=== PATIENT | male | born 1980 | race Two or more races ===

== ENCOUNTER 2016-07-07 07:42 | Emergency (ER) | payer MEDICARE ==
[~2016-07-07] VITALS: Ht 177.8 cm; Wt 95.3 kg
[~2016-07-07 07:42] MED LIST: PEPCID40 MG PO
[2016-07-07] MEDS ORDERED: ABILIFY2 MG ORAL (07:53)
[2016-07-07] MEDS ORDERED: Surgicel 4in x 8in TOPIC ONE (08:01)
[2016-07-07 08:09] VITALS: BP 129/91
--- NOTE | 2016-07-07 08:11 | Emergency Room Report ---
History of Present Illness General Chief Complaint: Laceration Source: Patient Present Illness HPI Patient just with complaints of laceration to his right thumb patient is right- hand dominant this occurred approximately 2:00 in the morning Patient reports that he was changing a tire on his car when the laceration occurred Patient reports last tetanus shot was less than 5 years ago Denies any other hand pain or elbow pain denies any other trauma Pain localized to the area is 4/10 worse with touch Allergies: Coded Allergies: No Known Allergies (Unverified , 04/21/13) Patient History Past Medical History: see triage record Pertinent Family History: none Reviewed Nursing Documentation: PMH: Agreed, PSxH: Agreed Nursing Documentation-PMH Past Medical History: No Stated History Review of Systems All Other Systems: negative except mentioned in HPI Physical Exam Vital Signs Date Time Temp Pulse Resp B/P Pulse Ox O2 Delivery O2 Flow Rate FiO2 07/07/16 07:47 98.2 98 16 129/91 99 Room Air Sp02 EP Interpretation: reviewed, normal General Appearance: well appearing, no apparent distress Head: normocephalic, atraumatic Eyes: bilateral eye EOMI, bilateral eye PERRL ENT: normal pharynx Neck: supple Respiratory: lungs clear Cardiovascular #1: regular rate, rhythm Gastrointestinal: non tender, soft Musculoskeletal: other - Patient will to fully flex the thumb, full range of motion intact Neurologic: motor strength/tone normal, sensory intact Skin: other - Distal tip palmar aspect right thumb, there is what appears to be a full skin avulsion/distal tip amputation Lymphatic: no adenopathy Medical Decision Making Diagnostic Impression: Primary Impression: Skin avulsion Additional Impression: Amputation finger ER Course Given the exam and evaluation there is no area for other suturing there appears to be a full avulsion/distal tip amputation The area was cleansed and irrigated Surgeon seal applied to the area Pressure Curlex applied on top with good coverage and pressure Patient remained neurovascularly intact after Patient is provided pain medication requires close outpatient followup Last Vital Signs Date Time Temp Pulse Resp B/P Pulse Ox O2 Delivery O2 Flow Rate FiO2 07/07/16 07:47 98.2 98 16 129/91 99 Room Air Status: improved Disposition: HOME, SELF-CARE Condition: Improved Referrals: NOT CHOSEN IPA/MD,REFERRING (PCP) Additional Instructions: Patient is provided with the discharge instructions notified to follow up with primary doctor in the next 2-3 days otherwise return to the er with any worsening symptoms. Please note that this report is being documented using DRAGON technology. This can lead to erroneous entry secondary to incorrect interpretation by the dictating instrument. CHANELL RODRIGUEZ D.O. Jul 07, 2016 08:10
[2016-07-07] MEDS ORDERED: ACETAMINOPHEN-1 EAC1 ORAL (08:12)
[2016-07-07] MEDS ORDERED: IBUPROFEN600 MG ORAL (08:12)
[2016-07-07 08:16] VITALS: BP 129/91
== END 2016-07-07 08:30 | disposition home or self-care (01) ==
LOC: EMR 08:00
DX: S68.021A Partial traumatic metacarpophalangeal amputation of right thumb, initial encounter (principal); S61.001A Unspecified open wound of right thumb without damage to nail, initial encounter; X58.XXXA Exposure to other specified factors, initial encounter; Y92.9 Unspecified place or not applicable; Y99.8 Other external cause status
CPT/HCPCS: 99282

== ENCOUNTER 2017-11-30 13:39 | Emergency (ER) | payer MEDICARE ==
[~2017-11-30] VITALS: Ht 175.3 cm; Wt 81.6 kg
[~2017-11-30 13:39] MED LIST changes: +ABILIFY2 MG ORAL; +ACETAMINOPHEN-1 EAC1 ORAL; +IBUPROFEN600 MG ORAL
[2017-11-30 13:52] VITALS: BP 152/93
--- NOTE | 2017-11-30 13:55 | Emergency Room Report ---
History of Present Illness General Chief Complaint: Male Urogenital Problems Source: Patient Present Illness HPI patient is a 37-year-old male with no significant past medical history complaining of one day of a cyst on his penile shaft after shaving. Pain, pus drainage, scrotal swelling, penile discharge, dysuria, fevers/chills. Denies recent sexual encounter has not taken any medication for the cyst. All other review of systems Allergies: Coded Allergies: No Known Allergies (Unverified , 04/21/13) Patient History Past Medical History: see triage record Past Surgical History: none Immunizations: UTD Reviewed Nursing Documentation: PMH: Agreed; PSxH: Agreed Nursing Documentation-PMH Past Medical History: No History, Except For History Of Psychiatric Problem: Yes - Schizophrenia Review of Systems All Other Systems: negative except mentioned in HPI Physical Exam Vital Signs Date Time Temp Pulse Resp B/P (MAP) Pulse Ox O2 Delivery O2 Flow Rate FiO2 11/30/17 13:44 97.9 80 16 152/93 94 Room Air 97.9 Sp02 EP Interpretation: reviewed, normal General Appearance: normal inspection, well appearing, no apparent distress Head: normocephalic Eyes: bilateral eye normal inspection, bilateral eye PERRL ENT: normal ENT inspection, hearing grossly normal Neck: normal inspection, full range of motion, supple Respiratory: normal inspection, lungs clear, no rhonchi, no wheezing Cardiovascular #1: normal inspection, no edema, no murmur Gastrointestinal: normal inspection, soft Rectal: deferred Genitourinary: no CVA tenderness, other - small nonerythematous nonpustular cysts on posterior penile shaft Musculoskeletal: normal inspection, back normal Neurologic: normal inspection, alert Psychiatric: normal inspection, judgement/insight normal Skin: warm/dry, other - Small non-pustular nonerythematous cysts on posterior penile shaft Lymphatic: normal inspection, no adenopathy Medical Decision Making PA Attestation All diagnoses and treatment plans were reviewed and discussed with my supervising physician Dr. Richmond Diagnostic Impression: Primary Impression: Abnormal urogenital findings Additional Impression: Penile cyst ER Course patient is a 37-year-old male with no significant past medical history complaining of one day of a cyst on his penile shaft after shaving. Pain, pus drainage, scrotal swelling, penile discharge, dysuria, fevers/chills. Denies recent sexual encounter has not taken any medication for the cyst. All other review of systems Ddx considered but are not limited to penile cyst, penile abscess,balanitis Vital signs: are WNL, pt. is afebrile H&PE are most consistent with penile cyst ORDERS: Keflex, Bactroban ED INTERVENTIONS: None required at this time. DISCHARGE: At this time pt. is stable for d/c to home. Will provide printed patient care instructions, and any necessary prescriptions. Care plan and follow up instructions have been discussed with the patient prior to discharge.if fevers/chills return to the emergency room, keep the area dry, wear cotton underwear, social intercourse with condoms Last Vital Signs Date Time Temp Pulse Resp B/P (MAP) Pulse Ox O2 Delivery O2 Flow Rate FiO2 11/30/17 13:44 97.9 80 16 152/93 94 Room Air 97.9 Disposition: HOME, SELF-CARE Condition: Stable Scripts Mupirocin (BACTROBAN CR) 15 Gm Cream..g. 1 APPLIC TOPIC THREE TIMES A DAY, #1 GM Prov: Simon Arana 11/30/17 Cephalexin* (KEFLEX*) 500 Mg Capsule 500 MG ORAL EVERY 8 HOURS for 7 Days, #21 CAP 0 Refills Prov: Simon Arana 11/30/17 Patient Instructions: Folliculitis Additional Instructions: family stating that area, finish antibiotics, keep the area dry, if the cyst burst open apply antibiotic ointment. If fever/chills return to the emergency room Simon Arana Nov 30, 2017 13:55
[2017-11-30] MEDS ORDERED: BACTROBAN15 GM TOPIC (13:57)
[2017-11-30] MEDS ORDERED: CEPHALEXIN500 MG ORAL (13:57)
[2017-11-30 14:00] VITALS: BP 152/93
== END 2017-11-30 14:00 | disposition home or self-care (01) ==
LOC: EMR 13:50
DX: N48.89 Other specified disorders of penis (principal)
CPT/HCPCS: 99284